=== PATIENT | female | born 1995 | race African-American/Black ===

== ENCOUNTER 2024-07-02 15:48 | Emergency (ER) | payer OTHER, SELFPAY ==
[2024-07-02 15:50] VITALS: BP 120/87; PULSE 93; RESP 14; TEMP 36.9; O2SAT 100
--- NOTE | 2024-07-02 17:39 | ED.WOUNDLAC ---
HPI - Wound/Laceration General Chief Complaint: Wound/Laceration <Judy Strange PA-C - Last Filed: 07/05/24 14:37> Stated Complaint: left hand lac <Judy Strange PA-C - Last Filed: 07/05/24 14:37> Time Seen by Provider: 07/02/24 17:39 <Judy Strange PA-C - Last Filed: 07/05/24 14:37> Focused HPI: This is a 28 year old female that presents to the ER for laceration to the left hand sustained just prior to arrival. Reports she accidentally cut herself with a knife while cooking. She is up to date on tetanus. GENERAL: Well-appearing, well-nourished, and in no acute distress. HEAD: Normocephalic, atraumatic. CHEST: Clear to auscultation. ?No respiratory distress. HEART: Regular rate and rhythm.? MUSCULOSKELETAL: Left hand palmar aspect with 1.5cm linear laceration into subcutaneous tissue NEURO: ?Alert and oriented x3. Patient screened in triage and initial orders placed.? ?Additional care and disposition to be based upon?diagnostic testing and treatment. <Judy Strange PA-C - Last Filed: 07/05/24 14:37> Related Data Allergies/Adverse Reactions: Allergies Allergy/AdvReac Type Severity Reaction Status Date / Time No Known Allergies Allergy Verified 07/02/24 22:02 <Judy Strange PA-C - Last Filed: 07/05/24 14:37> Review of Systems Review of Systems: All systems as dictated in HPI <Иван Anna PA-C - Last Filed: 07/02/24 22:14> PMFSH Past Medical History Medical History: Medical History (Updated 07/05/24 @ 14:37 by Judy Strange PA-C) No active medical problems <Judy Strange PA-C - Last Filed: 07/05/24 14:37> Social History Social History: Social History (Updated 07/05/24 @ 14:37 by Judy Strange PA-C) Substance use: never <Judy Strange PA-C - Last Filed: 07/05/24 14:37> Exam Narrative: GENERAL: Well-appearing, well-nourished, and in no acute distress. MSK: Normal range of motion. No edema. SKIN: 1.5 cm superficial laceration that approximates well. No active bleeding. NEURO: Alert and oriented x4. No focal deficits. PSYCH: Normal mood and affect. <CHRISTA Zelaya Last Filed: 07/02/24 22:14> Course Vital Signs Vital signs: Vital Signs Temperature 98.5 F 07/02/24 15:50 Pulse Rate 93 07/02/24 15:50 Respiratory Rate 14 07/02/24 15:50 Blood Pressure 120/87 07/02/24 15:50 Pulse Oximetry 100 07/02/24 15:50 Oxygen Delivery Room Air 07/02/24 15:50 Temperature 97.9 F 07/02/24 22:14 Pulse Rate 82 07/02/24 22:14 Respiratory Rate 16 07/02/24 22:14 Blood Pressure 122/80 07/02/24 22:14 Pulse Oximetry 100 07/02/24 22:14 Oxygen Delivery Room Air 07/02/24 15:50 <CHRISTA Claros Last Filed: 07/05/24 14:37> Vital Signs Temperature 98.5 F 07/02/24 15:50 Pulse Rate 93 07/02/24 15:50 Respiratory Rate 14 07/02/24 15:50 Blood Pressure 120/87 07/02/24 15:50 Pulse Oximetry 100 07/02/24 15:50 Oxygen Delivery Room Air 07/02/24 15:50 Temperature 97.9 F 07/02/24 22:14 Pulse Rate 82 07/02/24 22:14 Respiratory Rate 16 07/02/24 22:14 Blood Pressure 122/80 07/02/24 22:14 Pulse Oximetry 100 07/02/24 22:14 Oxygen Delivery Room Air 07/02/24 15:50 <CHRISTA Zelaya Last Filed: 07/02/24 22:14> Procedures Laceration Laceration 1: Date: 07/02/24 <CHRISTA Zelaya Last Filed: 07/02/24 22:14> Time: 22:12 <CHRISTA Zelaya Last Filed: 07/02/24 22:14> Site: hand <CHRISTA Zelaya Last Filed: 07/02/24 22:14> Side (If applicable): left <CHRISTA Zelaya Last Filed: 07/02/24 22:14> Size (cm): 1.5 <CHRISTA Zelaya Last Filed: 07/02/24 22:14> Description: linear <CHRISTA Zelaya Last Filed: 07/02/24 22:14> Depth: simple, single layer <CHRISTA Zelaya Last Filed: 07/02/24 22:14> Local Anesthetic:
[2024-07-02 22:03] VITALS: BP 128/87; PULSE 89; RESP 16; O2SAT 100
[2024-07-02 22:14] VITALS: BP 122/80; PULSE 82; RESP 16; TEMP 36.6; O2SAT 100
== END 2024-07-02 22:14 | disposition home or self-care (01) ==
PROVIDERS: Emergency Provider Physician Assistant
DX: S61.412A Laceration without foreign body of left hand, initial encounter (principal); W26.0XXA Contact with knife, initial encounter; Y93.G1 Activity, food preparation and clean up
CPT/HCPCS: 12001; 99282